=== PATIENT | male | born 1945 | race Caucasian/White ===

== ENCOUNTER → 2017-01-02 | Outpatient (CLI) | payer OTHER, MEDICARE | END | disposition disaster alternative care site (69) | LOC: LJOHN2 01-01 12:00 | DX: I21.4 Non-ST elevation (NSTEMI) myocardial infarction (principal); I49.8 Other specified cardiac arrhythmias ==

== ENCOUNTER → 2017-01-30 | Outpatient (CLI) | payer OTHER ==
[2017-01-30 10:12] LABS: INR - (THERAPEUTIC) 1.84 (0.92-1.07); PROTIME 19.4 SECONDS (9.8-11.4)
== END ==
LOC: LJOHN2 01-29 13:48
PROVIDERS: Obstetrics & Gynecology Obstetrics
DX: I49.8 Other specified cardiac arrhythmias (principal); I21.4 Non-ST elevation (NSTEMI) myocardial infarction

== ENCOUNTER → 2017-06-05 | Outpatient (CLI) | payer OTHER, MEDICARE ==
[2017-06-05 10:27] LABS: INR - (THERAPEUTIC) 2.64 (0.92-1.07)
== END ==
LOC: LJOHN2 07:34
PROVIDERS: Obstetrics & Gynecology Obstetrics
DX: I21.4 Non-ST elevation (NSTEMI) myocardial infarction (principal); I49.8 Other specified cardiac arrhythmias